=== PATIENT | female | born 2000 | race Caucasian/White ===

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

== ENCOUNTER 2022-09-30 12:12 | Inpatient (IN) | payer MEDICAID ==
[~2022-09-30] VITALS: Ht 175.3 cm; Wt 114.1 kg
[2022-09-30] VITALS (30 sets, daily range): BP systolic 86–144; BP diastolic 48–97; PULSE 75–98; TEMP 97.7–98.9
[~2022-09-30 12:12] MED LIST changes: +LEXAPRO20 MG PO
--- NOTE | 2022-09-30 12:20 | NUR ---
Pt arrived on unit ambulatory and escorted by boyfriend. Pt was sent over from the office with concerns of elevated blood pressures. Pt reports occasional contractions, denies any leaking of fluid or vaginal bleeding and reports normal movement. EFM and toco monitors started. Vital signs WNL. Plan of care for labs and serial blood pressures reviewed with pt and boyfriend. Both verbalized an understanding, agreed with the plan and states no questions or concerns.
[2022-09-30] MEDS ORDERED: PRENATAL (12:36)
--- NOTE | 2022-09-30 12:55 | NUR ---
Dr. Barboza at the bedside. Plan of care for labs, continued EFM and serial blood pressures reviewed with pt and boyfriend. Also discussed possible delivery today with options of vaginal vs. due to herpes outbreak 2 weeks ago. Both verbalized an understanding, agreed with the plan and states no questions or concerns at this time.
[2022-09-30 13:33] LABS: HEMOGLOBIN 12.1 g/dl (12.0-15.0); MEAN CELL VOLUME 88 fl (80.0-95.0); MEAN CORPUSCULAR HEMOGLOBIN 29 pg (26-32); MEAN CORPUSCULAR HGB CONC 34 g/dl (33.0-37.0); MEAN PLATELET VOLUME 11.8 fl (7.4-10.4); PLATELET COUNT 190 K/mm3 (130-400); RED BLOOD COUNT 4.11 M/mm3 (4.10-5.30)
[2022-09-30 13:38] LABS: ALBUMIN 3.1 gm/dL (3.5-5.0); BILIRUBIN,TOTAL 0.3 mg/dL (0.2-1.2); CALCIUM 9.3 mg/dL (8.4-10.2); CREATININE, serum 0.57 mg/dL (0.57-1.11); POTASSIUM 3.8 mmol/L (3.5-4.5); TOTAL PROTEIN 6.8 gm/dL (6.2-8.1)
[2022-09-30 13:47] LABS: COLLECTION METHOD CLEAN CATCH
[2022-09-30 13:51] LABS: MUCOUS Present (NOT PRESENT); SQUAMOUS EPITHELIAL 0-2 /hpf (0-10); URINE BACTERIA Rare /hpf (NONE SEEN); URINE RBC 0-2 /hpf (0-2); URINE WBC 0-2 /hpf (0-2)
[2022-09-30 13:58] LABS: URINE APPEARANCE Clear (CLEAR/HAZY); URINE COLOR Yellow (YELLOW); URINE GLUCOSE Negative (NEGATIVE); URINE KETONE TRACE (NEGATIVE); URINE NITRATE Negative (NEGATIVE); URINE PROTEIN(semi-quant) Negative (NEGATIVE); URINE UROBILINOGEN 0.2 E.U/dL (0.2-1.0)
[2022-09-30 13:59] LABS: URINE BLOOD Negative (NEGATIVE)
--- NOTE | 2022-09-30 16:10 | NUR ---
1610 DR. ANDERSON IN ROOM TO DISCUSS CS WITH PATIENT DUE TO HSV AND IUGR. PT CONSENTS. PREPARATION NOW.
--- NOTE | 2022-09-30 18:30 | NUR ---
Pt to room via bed. Oriented to room, plan of care. Boyfriend loving and attentive.
[2022-09-30] MEDS ORDERED: MOTRIN 800800 MG/TAB PO (20:53)
[2022-09-30] MEDS ORDERED: PERCOCET 325 MG1 TA2 PO (20:54)
[2022-10-01 02:00] VITALS: BP 136/80; PULSE 78; TEMP 98
--- NOTE | 2022-10-01 06:15 | NUR ---
This nurse received report from Ladonna Chan RN. Pt has two more voids left, pt accepts TDAP and MMR vaccines, still has INT in RH, will need education videos done, and is WNL. This nurse assumes care from Ladonna Chan RN.
[2022-10-01 07:15] VITALS: BP 141/81; PULSE 80; TEMP 98.3
--- NOTE | 2022-10-01 09:00 | NUR ---
Pt and pt significant other educated on whiteboard, interventions, POC for educational videos, and education packet. Questions, concerns, and needs encouraged. Pt verbalized understanding and agreement of POC with "no" questions, concerns, and needs. Medication administered.
--- NOTE | 2022-10-01 09:05 | NUR ---
Initial visit; Parents thanked Security Operations Specialist for offering God's blessings for the of their daughter. Security Operations Specialist [facility]
--- NOTE | 2022-10-01 10:19 | NUR ---
Pt has visitors at bedside during this nurse hourly rounding.
[2022-10-01 11:15] VITALS: BP 124/74; PULSE 81; TEMP 98.1
--- NOTE | 2022-10-01 14:36 | NUR ---
Pt and pt spouse watching educational videos at this time. 1300: Pt and pt spouse started on educational videos.
[2022-10-01 15:00] VITALS: BP 124/70; PULSE 85; TEMP 98.1
[2022-10-01 21:00] VITALS: BP 132/71; PULSE 84; TEMP 98.3
[2022-10-02 07:15] VITALS: BP 127/68; PULSE 85; TEMP 97.7
--- NOTE | 2022-10-02 13:15 | NUR ---
Discharge instructions and follow up care reviewed with pt and boyfriend at the bedside. Both verbalized an understanding, agreed with the plan and states no questions or concerns at this time.
== END 2022-10-02 13:30 | disposition home or self-care (01) | DRG 787 ==
LOC: LDRO 12:12 → LDR 16:16 → LDRO 16:18 → LDR 16:19 → OB 16:19 → LDR 16:20 → OB 18:25
PROVIDERS: Student in an Organized Health Care Education/Training Program; ADMIT Obstetrics & Gynecology
PROC: 10D00Z1 Extraction of Products of Conception, Low, Open Approach (ICD-10-PCS; principal; 2022-09-30)
DX: O13.4 Gestational [pregnancy-induced] hypertension without significant proteinuria, complicating childbirth (principal); O98.32 Other infections with a predominantly sexual mode of transmission complicating childbirth; Z37.0 Single live birth; O36.5930 Maternal care for other known or suspected poor fetal growth, third trimester, not applicable or unspecified; O99.820 Streptococcus B carrier state complicating pregnancy; O43.193 Other malformation of placenta, third trimester; O99.52 Diseases of the respiratory system complicating childbirth; J45.909 Unspecified asthma, uncomplicated; O99.344 Other mental disorders complicating childbirth; F41.9 Anxiety disorder, unspecified; F32.A Depression, unspecified; A60.09 Herpesviral infection of other urogenital tract; Z3A.40 40 weeks gestation of pregnancy; Z14.1 Cystic fibrosis carrier
CPT/HCPCS: J0171; J0690; J1100; J1885; J2370; J2405; J2590

== ENCOUNTER 2023-03-16 13:30 | Emergency (ER) | payer MEDICAID ==
[~2023-03-16] VITALS: Ht 175.3 cm; Wt 100.0 kg
[~2023-03-16 13:30] MED LIST changes: +MOTRIN 800800 MG/TAB PO; +PERCOCET 325 MG1 TA2 PO; +PRENATAL
[2023-03-16 13:38] VITALS: TEMP 97.8
[2023-03-16 15:40] LABS: BASO # 0.1 K/mm3 (0.0-0.2); BASO % 0.6 % (0.0-2.0); EOS # 0.1 K/mm3 (0.0-0.7); EOS % 0.8 % (0.0-4.0); GRAN # 7.1 K/mm3 (1.4-6.5); GRAN % 82.9 % (42.2-75.2); HEMATOCRIT 41.6 % (35.0-45.0); HEMOGLOBIN 13.4 g/dl (12.0-15.0); LYMPH % 11.8 % (20.0-51.0); MEAN CELL VOLUME 89 fl (80.0-95.0); MEAN CORPUSCULAR HEMOGLOBIN 29 pg (26-32); MEAN CORPUSCULAR HGB CONC 32 g/dl (33.0-37.0); MEAN PLATELET VOLUME 10.9 fl (7.4-10.4); MONO # 0.3 K/mm3 (0.1-0.6); MONO % 3.7 % (1.7-9.3); PLATELET COUNT 223 K/mm3 (130-400); RED BLOOD COUNT 4.68 M/mm3 (4.10-5.30); REDCELL DISTRIBUTION WIDTH-CV 12.8 % (11.5-14.5)
[2023-03-16 16:12] LABS: ALBUMIN 4.3 gm/dL (3.5-5.0); BILIRUBIN,TOTAL 0.4 mg/dL (0.2-1.2); CALCIUM 9.5 mg/dL (8.4-10.2); CREATININE, serum 0.76 mg/dL (0.57-1.11); TOTAL PROTEIN 7.7 gm/dL (6.2-8.1)
[2023-03-16 16:35] VITALS: BP 122/62; PULSE 63
== END 2023-03-16 16:35 | disposition home or self-care (01) ==
LOC: COL.ER 13:30
PROVIDERS: Physician Assistant
DX: G43.909 Migraine, unspecified, not intractable, without status migrainosus (principal)
CPT/HCPCS: J1200; J1885; J2405; J7030